=== PATIENT | male | born 1955 | race Caucasian/White ===

== ENCOUNTER 2023-03-03 19:39 | Emergency (ER) | payer MEDICAID ==
[~2023-03-03] VITALS: Ht 172.7 cm; Wt 85.0 kg
[2023-03-03 19:43] VITALS: O2SAT 98
[2023-03-03] MEDS ORDERED: ACETAMINOPHEN 325MG TABLET PO ONE (20:15)
[2023-03-03] MEDS ORDERED: IBUPROFEN 600MG TABLET PO ONE (20:15)
[2023-03-03] MEDS ORDERED: IBUP-2029 MT (20:15)
[2023-03-03] MEDS ORDERED: TOPUD MT (20:15)
[2023-03-03 20:26] VITALS: BP 132/88
[2023-03-03 20:28] VITALS: PULSE 102; RESP 16; TEMP 98.4
== END 2023-03-03 20:30 | disposition home or self-care (01) ==
LOC: ER 19:39
DX: J06.9 Acute upper respiratory infection, unspecified (principal); R50.9 Fever, unspecified; I10 Essential (primary) hypertension; F12.10 Cannabis abuse, uncomplicated
CPT/HCPCS: 99283